=== PATIENT | female | born 1935 | race Caucasian/White ===

== ENCOUNTER 2017-06-10 00:54 | Emergency (ER) | payer MEDICARE, OTHER, MEDICAID ==
[~2017-06-10] VITALS: Ht 152.4 cm; Wt 45.0 kg
[~2017-06-10 00:54] MED LIST: ASPI81TA39 PO; RIVA15T PO; TRAM50TA4 PO
[2017-06-10] MEDS ORDERED: TraMADol HCL 50 MG TABLET PO ONE (02:15)
[2017-06-10 02:19] VITALS: BP 131/68
== END 2017-06-10 02:23 | disposition home or self-care (01) ==
LOC: EMS 00:57
DX: M79.7 Fibromyalgia (principal); I48.91 Unspecified atrial fibrillation
CPT/HCPCS: 99283